=== PATIENT | male | born 1990 | race African-American/Black ===

== ENCOUNTER 2017-01-23 20:54 | Emergency (ER) | payer OTHER ==
[~2017-01-23] VITALS: Ht 188 cm; Wt 88.9 kg
[~2017-01-23 20:54] MED LIST: ADDERALL XR 2525 MG PO; AMBIEN5 MG PO; AZITHROMYCIN250 MG PO; CLONAZEPAM0.5 MG PO; CYPROHEPTAD2 MG/5 ML PO; CYPROHEPTADINE H4 MG PO; GEODON60 MG PO; GLUCOPHAGE500 MG PO; KEFLEX500 MG PO; LEVOFLOXACIN500 MG PO; OLANZAPINE10 MG PO; STRATTERA10 MG PO; STRATTERA80 MG PO; TAMIFLU75 MG PO; TYLENOL REGULA325 MG PO; ZYPREXA5 MG PO
[2017-01-23 21:52] LABS: EOSINOPHIL (%) 0.6 % (0-5); EOSINOPHIL COUNT 0.1 K/uL (0-0.3); HEMATOCRIT 41.9 % (38.0-50.0); IMMATURE GRANULOCYTE (%) 0.3 % (0.0-0.7); INSTRUMENT ABS NEUTROPHIL CT 8.3 K/uL; LYMPHOCYTE COUNT 2.4 K/uL (1.0-2.8); MCH 27.2 PG (29.0-34.0); MCHC 35.8 G/DL (30.0-36.0); MCV 75.9 FL (86-99); MEAN PLAT.VOLUME 9.6 uM^3 (9.0-12.4); MONOCYTE (%) 8.7 % (3-12); NEUTROPHIL (%) 70.1 % (45-76); NEUTROPHIL COUNT 8.3 K/uL (1.8-6.4); PLATELET COUNT 253 K/uL (156-360); RBC DIS.WIDTH-CV 12.2 % (11.8-14.6); RBC DIS.WIDTH-SD 33.2 % (39-53); RED BLOOD COUNT 5.52 M/uL (4.00-5.50); WHITE BLOOD COUNT 11.8 K/uL (4.1-10.2)
[2017-01-23 21:59] LABS: CARBON DIOXIDE (BICARBONATE) 31.9 MEQ/L (20-31)
[2017-01-23 22:03] LABS: CHLORIDE 96 mEq/L (99-109); POTASSIUM 3.8 mEq/L (3.7-5.4); SODIUM 133 mEq/L (136-147)
[2017-01-23 22:04] LABS: MAGNESIUM 1.5 mg/dL (1.3-2.7)
[2017-01-23 22:07] LABS: ANION GAP 10 MEQ/L (2-14)
[2017-01-23 22:09] LABS: GFR ESTIMATE (CALCULATED) > 59 mL/min/
[2017-01-23 22:10] LABS: UREA NITROGEN (BUN) 10 mg/dL (9-23)
[2017-01-23 22:21] LABS: GLUCOSE 498 mg/dL (70-99)
[2017-01-23 23:14] LABS: POINT-OF-CARE METER ID UU14100415
[2017-01-24 00:17] LABS: POINT-OF-CARE METER ID UU14100415
[2017-01-24 00:29] VITALS: BP 132/88
[2017-01-25 12:23] LABS: POINT-OF-CARE METER ID UU14100415
== END 2017-01-24 00:20 | disposition home or self-care (01) ==
LOC: EME 20:54
PROVIDERS: Emergency Medicine
DX: R73.9 Hyperglycemia, unspecified (principal); E86.0 Dehydration; R00.0 Tachycardia, unspecified; Z87.891 Personal history of nicotine dependence
CPT/HCPCS: 80048; 82010; 82803; 82948; 83735; 84100; 85025; 93005; 99281; 99284; J7030

== ENCOUNTER 2017-04-06 20:12 | Emergency (ER) | payer OTHER ==
[~2017-04-06] VITALS: Ht 188 cm; Wt 81.5 kg
[2017-04-06 22:08] LABS: POINT-OF-CARE METER ID UU13113747
[2017-04-06 22:26] LABS: CARBON DIOXIDE (BICARBONATE) 29.8 MEQ/L (20-31); HEMATOCRIT 39.9 % (38.0-50.0); MCH 27.6 PG (29.0-34.0); MCHC 35.6 G/DL (30.0-36.0); MCV 77.6 FL (86-99); MEAN PLAT.VOLUME 9.7 uM^3 (9.0-12.4); PLATELET COUNT 248 K/uL (156-360); RBC DIS.WIDTH-CV 12.8 % (11.8-14.6); RBC DIS.WIDTH-SD 36.2 % (39-53); RED BLOOD COUNT 5.14 M/uL (4.00-5.50); WHITE BLOOD COUNT 7.1 K/uL (4.1-10.2)
[2017-04-06 22:36] LABS: CHLORIDE 109 mEq/L (99-109); SODIUM 142 mEq/L (136-147)
[2017-04-06 22:38] LABS: GLUCOSE 146 mg/dL (70-99)
[2017-04-06 22:40] LABS: ANION GAP 7 MEQ/L (2-14)
[2017-04-06 22:41] LABS: SERUM ETHYL ALCOHOL < 10 mg/dL
[2017-04-06 22:42] LABS: GFR ESTIMATE (CALCULATED) > 59 mL/min/
[2017-04-06 22:43] LABS: UREA NITROGEN (BUN) 16 mg/dL (9-23)
[2017-04-07] VITALS: BP 109/64
[2017-04-07 00:01] LABS: ADD MIUA? YES; BILIRUBIN NEGATIVE; BLOOD NEGATIVE; COLOR YELLOW ((YELLOW)); GLUCOSE (STRIP) NEGATIVE; KETONES 5; LEUKOCYTES NEGATIVE; NITRITE NEGATIVE; PROTEIN (STRIP) NEGATIVE; UROBILINOGEN 0.2 MG/DL (0.2-1.0)
[2017-04-07 00:08] LABS: BACTERIA NONE SEEN /HPF; EPITHELIAL CELLS RARE /HPF; MUCUS 1+ /LPF; RED BLOOD CELLS 0-5 /HPF (0-5); UCUL ADDED? NO; WHITE BLOOD CELLS 0-5 /HPF (0-5)
[2017-04-07 00:11] LABS: AMPHETAMINE PRESUMPTIVE POSITIVE (500 ng/mL); BARBITURATES NEGATIVE (200 ng/mL); BENZODIAZEPINES NEGATIVE (150 ng/mL); COCAINE NEGATIVE (150 ng/mL); METHADONE NEGATIVE (200 ng/mL); METHAMPHETAMINE NEGATIVE (500 ng/mL); OPIATES (MORPHINE) NEGATIVE (100 ng/mL); PHENCYCLIDINE NEGATIVE (25 ng/mL); THC CANNABINOIDS NEGATIVE (50 ng/mL); TRICYCLIC ANTIDEPRESSANTS NEGATIVE (300 ng/mL)
[2017-04-07 00:12] LABS: ADD MEDTOX COMMENT Y; INTERNAL CONTROLS VALID? YES; OXYCODONE NEGATIVE (100 ng/mL); PROPOXYPHENE NEGATIVE (300 ng/mL)
== END 2017-04-07 00:01 | disposition home or self-care (01) ==
LOC: EME 20:12
PROVIDERS: Emergency Medicine
DX: R63.4 Abnormal weight loss (principal); E11.9 Type 2 diabetes mellitus without complications; Z79.84 Long term (current) use of oral hypoglycemic drugs; F70 Mild intellectual disabilities; J45.909 Unspecified asthma, uncomplicated; F90.9 Attention-deficit hyperactivity disorder, unspecified type; F31.9 Bipolar disorder, unspecified; Z87.891 Personal history of nicotine dependence; Z87.442 Personal history of urinary calculi
CPT/HCPCS: 71010; 80048; 81003; 82010; 82803; 82948; 84999; 85027; 90839; 99281; 99285; G0480; J7030

== ENCOUNTER 2018-04-03 11:54 | Emergency (ER) | payer OTHER ==
[~2018-04-03] VITALS: Ht 188 cm; Wt 83.6 kg
[2018-04-03 11:56] VITALS: BP 141/85
== END 2018-04-03 15:48 | disposition home or self-care (01) ==
LOC: EME 11:54
DX: Z76.0 Encounter for issue of repeat prescription (principal); F90.9 Attention-deficit hyperactivity disorder, unspecified type; F31.9 Bipolar disorder, unspecified; I10 Essential (primary) hypertension; E78.5 Hyperlipidemia, unspecified; E11.9 Type 2 diabetes mellitus without complications
CPT/HCPCS: 99281; 99283